=== PATIENT | male | born 1970 | race Caucasian/White ===

== ENCOUNTER 2018-09-05 23:03 | Emergency (ER) | payer OTHER ==
[~2018-09-05] VITALS: Ht 162.6 cm; Wt 65.9 kg
[2018-09-05] MEDS ORDERED: GLUCAGON FOR INJ 1 MG VIAL (J1610) IV STA (23:15)
[2018-09-05] MEDS ORDERED: GI COCKTAIL 50ML BTL(HYOSCYAMINE/MAALOX/LIDOCAINE VISCOUS)(1:3:1) PO ONE (23:30)
[2018-09-06] MEDS ORDERED: OMEPRAZOLE 20 MG CAP PO ONE (00:15)
[2018-09-06 00:20] LABS: BASO # 0.1 10^3/uL (0.0-0.2); BASO % 1.2 % (0.0-1.0); EOS # 0.3 10^3/uL (0.0-0.50); HEMATOCRIT 44.4 % (42.0-52.0); HEMOGLOBIN 15.5 g/dl (13.5-17.5); LYMPH # 2.2 10^3/uL (1.5-4.5); LYMPH % 26.3 % (24.0-44.0); MEAN CORPUSCULAR HEMOGLOBIN 30.3 pg (27.0-33.0); MEAN CORPUSCULAR HGB CONC 34.9 g/dl (32.0-36.5); MEAN CORPUSCULAR VOLUME 86.9 fl (80.0-96.0); MONO # 0.9 10^3/uL (0.0-0.8); MONO % 11.3 % (0.0-5.0); NEUTROPHILS # 4.8 10^3/uL (1.8-7.7); NEUTROPHILS % 57.1 % (36.0-66.0); PLATELET COUNT, AUTOMATED 251 10^3/uL (150-450); RED BLOOD COUNT 5.11 10^6/uL (4.30-6.10); WHITE BLOOD COUNT 8.3 10^3/uL (4.0-10.0)
[2018-09-06 00:33] LABS: ALT/SGPT 33 U/L (12-78); BILIRUBIN,DIRECT 0.2 MG/DL (0.0-0.2); BILIRUBIN,TOTAL 0.5 MG/DL (0.2-1.0); BLOOD UREA NITROGEN 10 MG/DL (7-18); CALCIUM LEVEL 9.4 MG/DL (8.5-10.1); CARBON DIOXIDE LEVEL 24 MEQ/L (21-32); CHLORIDE LEVEL 104 MEQ/L (98-107); CK-MB VALUE MASS 5.7 NG/ML (<3.6); CPK CREATINE PHOSPHOKINASE 628 U/L (39-308); CREATININE FOR GFR 0.95 MG/DL (0.70-1.30); GLOMERULAR FILTRATION RATE > 60.0 (>60); GLUCOSE, FASTING 85 MG/DL (70-100); LIPASE 197 U/L (73-393); MB/CK RELATIVE INDEX 0.91 (< OR =4); POTASSIUM SERUM 4.1 MEQ/L (3.5-5.1); SODIUM LEVEL 137 MEQ/L (136-145); TOTAL PROTEIN 7.2 GM/DL (6.4-8.2)
[2018-09-06] MEDS ORDERED: PROT1TAB2 PO (01:17)
[2018-09-06 01:27] VITALS: BP 141/97
--- NOTE | 2018-09-06 07:29 | REP ---
Clinical: Shortness of breath. Neck pain. Technique: AP and lateral (three total views) soft tissue neck radiographs. Findings: Focal advanced degenerative disc osteophyte complex at C6-7 along with moderate multilevel degenerative changes noted. The prevertebral and surrounding soft tissues are normal and without abnormal subcutaneous emphysema or foreign body. The visualized airways patent and normal. No mass or mass effect. No obvious stenosis. Impression: Cervical spondylosis. Normal appearance of the airway and surrounding soft tissues. Electronically Signed by Sha Verdin MD 09/06/2018 07:20 A
--- NOTE | 2018-09-06 07:34 | REP ---
Clinical: Shortness of breath . Comparison: 09/29/2013 . Technique: PA and lateral. Findings: The mediastinum and cardiac silhouette are normal. The lung boyce are clear and without acute consolidation, effusion, or pneumothorax. The skeletal structures are intact and normal. Impression: 1. No acute cardiopulmonary process. Electronically Signed by Sha Verdin MD 09/06/2018 07:26 A
--- NOTE | 2018-09-06 19:34 | ECGEPIP ---
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
== END 2018-09-06 01:30 | disposition home or self-care (01) ==
LOC: M ED 23:03
DX: R13.19 Other dysphagia (principal); F17.220 Nicotine dependence, chewing tobacco, uncomplicated

== ENCOUNTER 2018-12-23 14:39 | Emergency (ER) | payer OTHER ==
[~2018-12-23] VITALS: Ht 162.6 cm; Wt 64.5 kg
[~2018-12-23 14:39] MED LIST: PROT1TAB2 PO
[2018-12-23 16:03] LABS: BASO # 0.1 10^3/uL (0.0-0.2); BASO % 0.9 % (0.0-1.0); EOS # 0.3 10^3/uL (0.0-0.5); HEMATOCRIT 49.1 % (42.0-52.0); HEMOGLOBIN 16.3 g/dl (13.5-17.5); LYMPH # 1.3 10^3/uL (1.5-5.0); MEAN CORPUSCULAR HGB CONC 33.2 g/dl (32.0-36.5); MEAN CORPUSCULAR VOLUME 87.2 fl (80.0-96.0); MONO # 0.9 10^3/uL (0.0-0.8); MONO % 9.4 % (0.0-5.0); NEUTROPHILS # 6.7 10^3/uL (1.5-8.5); NEUTROPHILS % 72.2 % (36.0-66.0); PLATELET COUNT, AUTOMATED 277 10^3/uL (150-450); RED BLOOD COUNT 5.63 10^6/uL (4.30-6.10); WHITE BLOOD COUNT 9.2 10^3/uL (4.0-10.0)
[2018-12-23 16:22] LABS: ERYTHROCYTE SEDIMENTATION RATE 2 mm/hr (0-15)
--- NOTE | 2018-12-23 16:23 | REP ---
Chest x-ray: Two views. History: Chest pain. Comparison chest x-ray: September 05, 2018. Findings: The lungs are symmetrically aerated and free of infiltrate. Pleural angles are sharp. Heart size is normal. Pulmonary vasculature is not increased. No significant bony abnormality. There is old post-traumatic deformity of the right second and third ribs. Impression: No active disease. Electronically Signed by Naeem Magana MD 12/23/2018 04:14 P
[2018-12-23 16:27] LABS: INFLUENZA A AMPLIFICATION NEGATIVE (NEGATIVE); INFLUENZA B AMPLIFICATION NEGATIVE (NEGATIVE)
[2018-12-23 16:31] LABS: ALT/SGPT 41 U/L (12-78); BLOOD UREA NITROGEN 12 MG/DL (7-18); CARBON DIOXIDE LEVEL 27 MEQ/L (21-32); CHLORIDE LEVEL 103 MEQ/L (98-107); CK-MB VALUE MASS 1.8 NG/ML (<3.6); CPK CREATINE PHOSPHOKINASE 219 U/L (39-308); CREATININE FOR GFR 1.07 MG/DL (0.70-1.30); GLOMERULAR FILTRATION RATE > 60.0 (>60); GLUCOSE, FASTING 86 MG/DL (70-100); MB/CK RELATIVE INDEX 0.82 (< OR =4); POTASSIUM SERUM 4.1 MEQ/L (3.5-5.1); SODIUM LEVEL 136 MEQ/L (136-145)
[2018-12-23 16:32] LABS: ALBUMIN 4.2 GM/DL (3.2-5.2); BILIRUBIN,DIRECT 0.2 MG/DL (0.0-0.2); BILIRUBIN,TOTAL 0.6 MG/DL (0.2-1.0); C REACTIVE PROTEIN QUANTITATIV 1.15 MG/DL (0.00-0.30); LIPASE 128 U/L (73-393); NT-PRO BNP 17 PG/ML (<125); TOTAL PROTEIN 7.6 GM/DL (6.4-8.2); TROPONIN I < 0.02 NG/ML (< 0.10)
[2018-12-23] MEDS ORDERED: ACETAMINOPHEN 500 MG TAB PO ONE (18:15)
[2018-12-23] MEDS ORDERED: PROAAER10 INH (18:18)
[2018-12-23 18:55] LABS: APPEARANCE, URINE CLEAR (CLEAR); BACTERIA, URINE AUTO NEGATIVE (NEGATIVE); BILIRUBIN, URINE AUTO NEGATIVE (NEGATIVE); BLOOD, URINE BLOOD 1+ (NEGATIVE); COLOR, URINE YELLOW (YELLOW); GLUCOSE, URINE (UA) AUTO NEGATIVE (NEGATIVE); KETONE, URINE AUTO 1+ mg/dL (NEGATIVE); LEUKOCYTE ESTERASE, URINE AUTO NEGATIVE (NEGATIVE); MUCUS, URINE SMALL (NEGATIVE); NITRITE, URINE AUTO NEGATIVE (NEGATIVE); PROTEIN, URINE AUTO NEGATIVE (NEGATIVE); RBC, URINE AUTO 1 /HPF (0-3); SPECIFIC GRAVITY URINE AUTO 1.009 (1.002-1.035); SQUAMOUS EPITHELIAL CELL UR AU 0 /HPF (0-6); UROBILINOGEN, URINE AUTO 0.2 mg/dL (0.0-2.0); WBC, URINE AUTO 0 /HPF (0-3)
[2018-12-23] MEDS ORDERED: BENZ200C70 PO (18:55)
[2018-12-23] MEDS ORDERED: ALBUTEROL 90 MCG/ACT 8GM HFA INHALER INH STA (19:08)
[2018-12-23 19:15] VITALS: BP 164/103
--- NOTE | 2018-12-24 12:09 | ECGEPIP ---
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
[2018-12-25 10:06] LABS: VITAMIN B12 LEVEL 532 PG/ML (247-911)
[2018-12-25 10:07] LABS: FOLATE 11.4 NG/ML (>5.4)
== END 2018-12-23 19:40 | disposition home or self-care (01) ==
LOC: M ED 14:39
DX: J20.9 Acute bronchitis, unspecified (principal); F17.220 Nicotine dependence, chewing tobacco, uncomplicated; Z79.899 Other long term (current) drug therapy

== ENCOUNTER 2019-12-19 10:11 | Emergency (ER) | payer OTHER ==
[~2019-12-19] VITALS: Ht 162.6 cm; Wt 70.4 kg
[~2019-12-19 10:11] MED LIST changes: +BENZ200C70 PO; +PROAAER10 INH
[2019-12-19] MEDS ORDERED: OMEP-218 PO (10:20)
[2019-12-19] MEDS ORDERED: QVAR80AE8 INH (10:20)
[2019-12-19] MEDS ORDERED: AMLO1TAB24 PO (10:20)
[2019-12-19] MEDS ORDERED: KETOROLAC 30 MG/ML 1ML VIAL IV ONE (11:00)
[2019-12-19 11:13] LABS: BASO # 0.1 10^3/uL (0.0-0.2); BASO % 1.1 % (0.0-1.0); EOS # 0.2 10^3/uL (0.0-0.5); EOS % 2.5 % (0.0-3.0); HEMATOCRIT 45.5 % (42.0-52.0); HEMOGLOBIN 14.6 g/dl (13.5-17.5); LYMPH # 1.1 10^3/uL (1.5-5.0); LYMPH % 14.9 % (24.0-44.0); MEAN CORPUSCULAR HEMOGLOBIN 27.3 pg (27.0-33.0); MEAN CORPUSCULAR HGB CONC 32.1 g/dl (32.0-36.5); MONO # 0.7 10^3/uL (0.0-0.8); MONO % 9.4 % (0.0-5.0); NEUTROPHILS # 5.4 10^3/uL (1.5-8.5); NEUTROPHILS % 71.3 % (36.0-66.0); PLATELET COUNT, AUTOMATED 269 10^3/uL (150-450); RED BLOOD COUNT 5.35 10^6/uL (4.30-6.10); WHITE BLOOD COUNT 7.6 10^3/uL (4.0-10.0)
[2019-12-19 11:39] LABS: ALBUMIN 4.2 GM/DL (3.2-5.2); ALT/SGPT 35 U/L (12-78); BILIRUBIN,DIRECT 0.2 MG/DL (0.0-0.2); BILIRUBIN,TOTAL 0.5 MG/DL (0.2-1.0); BLOOD UREA NITROGEN 10 MG/DL (7-18); CALCIUM LEVEL 9.5 MG/DL (8.5-10.1); CARBON DIOXIDE LEVEL 28 MEQ/L (21-32); CHLORIDE LEVEL 107 MEQ/L (98-107); CREATININE FOR GFR 0.88 MG/DL (0.70-1.30); GLOMERULAR FILTRATION RATE > 60.0 (>60); GLUCOSE, FASTING 86 MG/DL (70-100); LIPASE 92 U/L (73-393); POTASSIUM SERUM 4.4 MEQ/L (3.5-5.1); SODIUM LEVEL 140 MEQ/L (136-145)
[2019-12-19] MEDS ORDERED: ISOVUE-370 76% 100ML VIAL As Ordered ONE (11:43)
--- NOTE | 2019-12-19 12:44 | REP ---
INDICATION: left abd pain/left ing hernia. COMPARISON: None. TECHNIQUE: Bolus of 100 mL Isovue 370 scanning through the abdomen and pelvis with both coronal and sagittal reconstructions. FINDINGS: CT abdomen: Lung bases are clear. Heart is not enlarged. There is no pericardial thickening or effusion. No hiatal hernia. Liver, spleen, gallbladder, pancreas, adrenal glands and kidneys were all unremarkable. The aorta is without aneurysm. No periaortic, mesenteric or retroperitoneal lymphadenopathy. The small bowel loops in the abdomen or unremarkable. The colon shows a few scattered diverticula without signs of diverticulitis or colitis. Appendix is normal. Bones show some minor degenerative changes in the spine. No compression fractures. Ribs grossly intact. CT pelvis: Sacrum, pelvis and hips show mild degenerative change without destructive lesion or fracture. Kidneys, ureters and bladder without stone. Bladder partially filled without mass or wall thickening. Distal left colon sigmoid and rectum as well as small bowel loops in the pelvis were unremarkable. No ventral hernia. There is a distended left inguinal canal with only omental fat within it. The distended canal has maximum transverse diameter of 6.7 by AP 4.3 cm and filled without fat. The right inguinal canal shows only a small amount of fat without adenopathy or mass. IMPRESSION: 1. Left inguinal canal with herniation of large volume of omental fat but no bowel herniation or or some other mass within the canal. No other significant finding. <Electronically signed by David Baxter > 12/19/19 [id number]
[2019-12-19 13:01] VITALS: BP 131/84
== END 2019-12-19 13:08 | disposition home or self-care (01) ==
LOC: M ED 10:11
DX: K40.90 Unilateral inguinal hernia, without obstruction or gangrene, not specified as recurrent (principal); K21.9 Gastro-esophageal reflux disease without esophagitis; I10 Essential (primary) hypertension; J45.909 Unspecified asthma, uncomplicated; Z79.899 Other long term (current) drug therapy; Z79.51 Long term (current) use of inhaled steroids
CPT/HCPCS: 36415; 74177; 80048; 80076; 83690; 85025; 96374; 99284; J1885; Q9967

== ENCOUNTER → 2020-02-28 | Outpatient (CLI) | payer OTHER ==
[~2020-02-28] MED LIST changes: +AMLO1TAB24 PO; +HYDR-3715 PO; +OMEP-218 PO; +QVAR80AE8 INH
== END ==
LOC: M LABSMTC 09:42
PROVIDERS: ATTEND Anesthesiology
DX: Z01.812 Encounter for preprocedural laboratory examination (principal); Z20.822 Contact with and (suspected) exposure to COVID-19

== ENCOUNTER 2020-03-04 07:41 | Day surgery (SDC) | payer OTHER ==
[~2020-03-04] VITALS: Ht 162.6 cm; Wt 69.8 kg
[~2020-03-04 07:41] MED LIST changes: +BUPIVACAINE HCL 0.25% 30ML VIAL As Ordered ONE; -HYDR-3715 PO; +LR 1,000 ML IV ONE
[2020-03-04] MEDS ORDERED: propofoL 200 MG/20 ML VIAL As Ordered ONE (08:59)
[2020-03-04] MEDS ORDERED: fentaNYL 100 MCG/2 ML INJECTION (J3010) As Ordered ONE ×2 (08:59→13:15)
[2020-03-04] MEDS ORDERED: ROCURONIUM BROMIDE 50 MG/5 ML VIAL As Ordered ONE (08:59)
[2020-03-04] MEDS ORDERED: MIDAZOLAM INJ 2MG/2ML VIAL (J2250 PER 1MG) As Ordered ONE (08:59)
[2020-03-04] MEDS ORDERED: LIDOCAINE 2% 100MG/5ML SDV (FOR ANES.) As Ordered ONE (08:59)
[2020-03-04] MEDS ORDERED: dexameTHASONE 4 MG/ML 1ML VIAL (J1100 PER 1MG) As Ordered ONE (12:49)
[2020-03-04] MEDS ORDERED: LACRILUBE (AKWA TEARS) OPHTH OINT 3.5 GM As Ordered ONE (12:49)
[2020-03-04] MEDS ORDERED: KETOROLAC 60MG 2ML VIAL As Ordered ONE (12:49)
[2020-03-04] MEDS ORDERED: ONDANSETRON 4MG/2ML VIAL As Ordered ONE (12:49)
[2020-03-04] MEDS ORDERED: oxyCODONE 5MG TAB As Ordered ONE (13:15)
[2020-03-04] MEDS: fentaNYL 100 MCG/2 ML INJECTION (J3010) IV PRN ×4 (13:17→13:38)
[2020-03-04] MEDS: oxyCODONE 5MG TAB PO PRN ×2 (13:17→14:02)
[2020-03-04] MEDS ORDERED: NORCO, ANEXSIA 5/325MG TABLET (HYDROcodone/ACETAMINOPHEN) PO PRN (13:30)
[2020-03-04] MEDS ORDERED: IBUPROFEN 600MG TAB PO PRN (13:30)
[2020-03-04] MEDS ORDERED: LR 1,000 ML IV SCH (13:30)
[2020-03-04] MEDS ORDERED: ONDANSETRON 4MG/2ML VIAL IV PRN (13:30)
[2020-03-04] MEDS ORDERED: ACETAMINOPHEN TAB 650MG DOSE (2X325MG) PO PRN (13:30)
[2020-03-04] MEDS ORDERED: HYDR-3715 PO (13:39)
[2020-03-04] MEDS: HYDROMORPHONE HCL 0.5 MG/ 0.5 ML SYRINGE (J1170 PER 1) IV PRN ×3 (13:44→14:05)
[2020-03-04] MEDS ORDERED: SUGAMMADEX SODIUM 500 MG/5 ML VIAL (BRIDION) As Ordered ONE (14:40)
[2020-03-04 14:50] VITALS: BP 143/87
--- NOTE | 2020-03-05 07:07 | RO ---
OPERATIVE NOTE DATE OF OPERATION: 03/04/2020 PREOPERATIVE DIAGNOSIS: Left inguinal hernia. POSTOPERATIVE DIAGNOSIS: Large indirect left inguinal hernia. PROCEDURE: Robotic-assisted laparoscopic repair of left inguinal hernia with Covidien ProGrip mesh. The utilized was reference code [id number], lot #[id number]. SURGEON: Austin Ibrahim MD OXYGEN THERAPY TECHNICIAN: REBEL Hinojosa. Ruba's assistance was necessary for management of the robotic instruments, changing of instruments, passage of sutures and the mesh and also closure of the incisions. ANESTHESIA: General INDICATIONS FOR THE PROCEDURE: The patient is a 49-year-old man who has noticed a left inguinal hernia for perhaps two years. It has gotten gradually larger and more uncomfortable. He is now for repair. DESCRIPTION OF PROCEDURE: The patient was brought to the operating room and placed on the table in a supine position. He was placed under general endotracheal anesthesia. The patient's abdomen, groins and genitalia were prepped and draped in a sterile fashion. 1/4% Marcaine was infiltrated at each of the trocar sites. A short transverse supraumbilical incision was made and a Veress needle was inserted. After a positive hanging drop test, the abdomen was inflated with carbon dioxide gas. An 8 mm robotic port was placed through the abdominal wall without difficulty. Initial inspection showed no evidence of trocar injury. A second 8 mm port was placed in the right upper quadrant and a third in the left upper quadrant. The patient was tilted to approximately 15 degrees of Trendelenburg position. The da Mariel XI patient cart was brought into position and the endoscope port was docked to the supraumbilical site. The additional arms were docked and a cauterizing scissor and fenestrated bipolar were inserted. I moved to the control console to proceed with the operation. The initial inspection showed no evidence of a hernia on the right-hand side. On the left-hand side, he clearly had a large hernia. There was a large amount of omentum within the opening of the hernia and this was gently reduced into the abdomen. Inspection revealed that the hernia was a large direct hernia. A preperitoneal space was developed by incising the peritoneum starting at the medial umbilical ligament and extending this laterally and then inferiorly toward the anterior-superior iliac spine. The peritoneum was incised and the space was developed by a combination of cautery and sharp dissection through the areolar tissues. The medial portion of the dissection was completed first, extending the dissection down to expose the area of the pubic symphysis and Gino's ligament. The lateral portion of the dissection was then performed and once this had been opened up, this left only the hernia sac protruding to be addressed. With traction on the hernia sac, this was dissected free from surrounding soft tissues and the adjacent cord structures. It was possible to completely invert the hernia sac intact. This was then peeled off of the underlying structures to create an adequate space for placement of the mesh. The hernia defect appeared to be at least 3 cm in diameter and I elected to close this. A 2-0 V-Loc suture was inserted and beginning at the medial extent of the defect, the inguinal floor was closed using superficial bites along the edge of the tissues, working laterally as far as the cord structures. The suture was then carried back toward the medial end of the closure to fix the suture. The needle was removed. The piece of ProGrip as identified previously was then inserted into the abdomen. The corners had been trimmed very slightly. This was placed into the preperitoneal space and then centered over the sutured fascial defect and opened. The adherent side of the mesh was gently pressed into the overlying inguinal floor tissues. Medially the mesh extended to the area of the symphysis pubis and extended inferiorly below the Gino's ligament. This appeared to nicely cover the area of the inguinal floor. The peritoneal flap was then closed with a running suture of 2-0 V-Loc. This was begun laterally. The pressure within the abdomen was reduced to 10 and subsequently 8 mmHg as the closure progressed. The patient was also gradually flattened so that as the final portion of the flap was closed, the patient was in a flat position. The final needle was removed. The robotic instruments were removed and the patient cart was undocked and withdrawn. REBEL Hinojosa then proceeded to deflate the abdomen and remove the robotic trocars and close the skin incisions with buried sutures of 4-0 Vicryl and Steri-Strips. Light dressings were applied. The patient tolerated the procedure well. He was awakened in the operating room extubated and moved to the recovery room in stable condition. [place]
== END 2020-03-04 15:20 | disposition home or self-care (01) ==
LOC: M SDC 07:41
PROVIDERS: ATTEND Surgery
DX: K40.90 Unilateral inguinal hernia, without obstruction or gangrene, not specified as recurrent (principal); I10 Essential (primary) hypertension; J45.909 Unspecified asthma, uncomplicated; Z79.899 Other long term (current) drug therapy
CPT/HCPCS: 49650; C1781; J1100; J1170; J1885; J2250; J2405; J3010; S2900

== ENCOUNTER 2021-06-06 20:47 | Inpatient (IN) | payer OTHER, SELFPAY ==
[~2021-06-06 20:47] MED LIST changes: -BUPIVACAINE HCL 0.25% 30ML VIAL As Ordered ONE; +HYDR-3715 PO; -LR 1,000 ML IV ONE; +OMEP-173 PO; -OMEP-218 PO
[2021-06-06] MEDS ORDERED: MORPHINE 4 MG/ML 1ML VIAL/SYRINGE IV ONE ×2 (21:05→22:10)
[2021-06-06] MEDS ORDERED: ISOVUE-370 76% 100ML VIAL As Ordered ONE (21:07)
[2021-06-06 21:19] LABS: BASO # 0.1 10^3/uL (0.0-0.2); BASO % 0.6 % (0.0-1.0); EOS # 0.1 10^3/uL (0.0-0.5); EOS % 0.4 % (0.0-3.0); HEMATOCRIT 49.7 % (42.0-52.0); HEMOGLOBIN 16.8 g/dl (13.5-17.5); LYMPH # 1.3 10^3/uL (1.5-5.0); LYMPH % 6.1 % (24.0-44.0); MEAN CORPUSCULAR HEMOGLOBIN 28.8 pg (27.0-33.0); MEAN CORPUSCULAR HGB CONC 33.8 g/dl (32.0-36.5); MEAN CORPUSCULAR VOLUME 85.1 fl (80.0-96.0); MONO # 1.3 10^3/uL (0.0-0.8); MONO % 6.2 % (2.0-8.0); NEUTROPHILS # 17.7 10^3/uL (1.5-8.5); NEUTROPHILS % 85.6 % (36.0-66.0); PLATELET COUNT, AUTOMATED 347 10^3/uL (150-450); RED BLOOD COUNT 5.84 10^6/uL (4.30-6.10); WHITE BLOOD COUNT 20.7 10^3/uL (4.0-10.0)
[2021-06-06 21:27] LABS: INR 0.81; PROTHROMBIN TIME 11.6 SECONDS (12.7-14.5)
[2021-06-06 21:28] LABS: PARTIAL THROMBOPLASTIN TIME 25.2 SECONDS (25.9-37.0)
[2021-06-06 21:45] LABS: CK-MB VALUE MASS 7.2 NG/ML (<3.6); MB/CK RELATIVE INDEX 1.28 (< OR =4)
[2021-06-06 21:45] LABS: ALBUMIN 4.5 GM/DL (3.2-5.2); BILIRUBIN,DIRECT 0.1 MG/DL (0.0-0.2); BILIRUBIN,TOTAL 0.3 MG/DL (0.2-1.0); ETHYL ALCOHOL (ETHANOL) 0.215 % (0.000-0.010); TOTAL PROTEIN 8.1 GM/DL (6.4-8.2)
[2021-06-06] MEDS ORDERED: fentaNYL 100 MCG/2 ML INJECTION IV ONE ×2 (22:25→23:25)
[2021-06-06] MEDS ORDERED: MIDAZOLAM INJ 2MG/2ML VIAL (J2250 PER 1MG) IV STA ×2 (22:38→23:25)
[2021-06-06] MEDS ORDERED: MIDAZOLAM INJ 2MG/2ML VIAL (J2250 PER 1MG) As Ordered ONE (22:39)
[2021-06-06] MEDS ORDERED: LIDOCAINE W/EPINEPHRINE 1% 20ML VIAL SC ONE (22:40)
[2021-06-06] MEDS ORDERED: ALBU8.5H PO (23:28)
[2021-06-06] MEDS ORDERED: HOME MED LIST COMPLETE! XX SCH (23:30)
[2021-06-06] MEDS ORDERED: ALBUTEROL 90 MCG/ACT 8GM HFA INHALER INH PRN (23:45)
[2021-06-06] MEDS: LR 1,000 ML IV SCH (23:45)
[2021-06-06] MEDS ORDERED: ONDANSETRON 4MG/2ML VIAL IV PRN (23:45)
[2021-06-07] VITALS (13 sets, daily range): BP systolic 124–158; BP diastolic 69–97
[2021-06-07] MEDS ORDERED: ceFAZolin SOD 1 GM in D5W MINI-BAG PLUS 50 ML IV SCH ×2
[2021-06-07] MEDS: KETOROLAC 30 MG/ML 1ML VIAL IV SCH ×4 (01:05→17:37)
[2021-06-07 02:49] LABS: RSV AMPLIFICATION NEGATIVE (NEGATIVE)
[2021-06-07 03:09] LABS: APPEARANCE, URINE CLEAR (CLEAR); BACTERIA, URINE AUTO NEGATIVE (NEGATIVE); BILIRUBIN, URINE AUTO NEGATIVE (NEGATIVE); BLOOD, URINE BLOOD 2+ (NEGATIVE); COLOR, URINE YELLOW (YELLOW); GLUCOSE, URINE (UA) AUTO NEGATIVE (NEGATIVE); KETONE, URINE AUTO NEGATIVE (NEGATIVE); LEUKOCYTE ESTERASE, URINE AUTO NEGATIVE (NEGATIVE); MUCUS, URINE SMALL (NEGATIVE); NITRITE, URINE AUTO NEGATIVE (NEGATIVE); PROTEIN, URINE AUTO 2+ mg/dL (NEGATIVE); RBC, URINE AUTO 0 /HPF (0-3); SPECIFIC GRAVITY URINE AUTO 1.024 (1.002-1.035); SQUAMOUS EPITHELIAL CELL UR AU 0 /HPF (0-6); UROBILINOGEN, URINE AUTO 0.2 mg/dL (0.0-2.0); WBC, URINE AUTO 2 /HPF (0-3)
[2021-06-07 03:43] LABS: AMPHETAMINES LEVEL URINE NEGATIVE (NEGATIVE); BARBITURATES URINE NEGATIVE (NEGATIVE); BENZODIAZEPINES URINE POSITIVE (NEGATIVE); CANNABINOIDS URINE NEGATIVE (NEGATIVE); COCAINE METABOLITE URINE NEGATIVE (NEGATIVE); METHADONE URINE NEGATIVE (NEGATIVE); OPIATES URINE POSITIVE (NEGATIVE); PHENCYCLIDINE URINE NEGATIVE (NEGATIVE)
[2021-06-07] MEDS: PERCOCET 5MG/325MG TAB PO PRN ×3 (04:23→16:11)
[2021-06-07 06:06] LABS: BASO % 0.2 % (0.0-1.0); EOS % 0.1 % (0.0-3.0); HEMATOCRIT 41.9 % (42.0-52.0); LYMPH # 0.9 10^3/uL (1.5-5.0); LYMPH % 6.6 % (24.0-44.0); MEAN CORPUSCULAR HEMOGLOBIN 28.7 pg (27.0-33.0); MEAN CORPUSCULAR HGB CONC 33.4 g/dl (32.0-36.5); MONO # 1.3 10^3/uL (0.0-0.8); NEUTROPHILS # 11.6 10^3/uL (1.5-8.5); NEUTROPHILS % 83.6 % (36.0-66.0); RED BLOOD COUNT 4.87 10^6/uL (4.30-6.10); WHITE BLOOD COUNT 13.9 10^3/uL (4.0-10.0)
[2021-06-07 06:07] LABS: PLATELET COUNT, AUTOMATED 242 10^3/uL (150-450)
[2021-06-07 06:37] LABS: BLOOD UREA NITROGEN 13 MG/DL (7-18); CALCIUM LEVEL 8.9 MG/DL (8.5-10.1); CARBON DIOXIDE LEVEL 27 MEQ/L (21-32); CHLORIDE LEVEL 102 MEQ/L (98-107); CREATININE FOR GFR 0.88 MG/DL (0.70-1.30); GLOMERULAR FILTRATION RATE > 60.0 (>60); GLUCOSE, FASTING 112 MG/DL (70-100); POTASSIUM SERUM 4.5 MEQ/L (3.5-5.1); SODIUM LEVEL 135 MEQ/L (136-145)
[2021-06-07] MEDS: LR 1,000 ML IV SCH ×2 (08:27→15:36)
[2021-06-07] MEDS: SENOKOT S TAB PO SCH ×2 (09:00→20:42)
[2021-06-07] MEDS: ENOXAPARIN 40MG/0.4ML SYRINGE (J1650 PER 10MG) SC SCH (09:59)
[2021-06-07] MEDS: amLODIPine 5 MG TAB PO SCH (09:59)
[2021-06-07] MEDS: ceFAZolin SOD 1 GM in D5W MINI-BAG PLUS 50 ML IV SCH ×4 (10:23→15:37)
[2021-06-07] MEDS ORDERED: LIDOCAINE 2% 100MG/5ML SDV (FOR ANES.) As Ordered ONE (12:52)
[2021-06-07] MEDS ORDERED: propofoL 200 MG/20 ML VIAL As Ordered ONE (12:52)
[2021-06-07] MEDS ORDERED: MIDAZOLAM INJ 2MG/2ML VIAL (J2250 PER 1MG) As Ordered ONE (12:53)
[2021-06-07] MEDS ORDERED: fentaNYL 100 MCG/2 ML INJECTION As Ordered ONE (12:53)
[2021-06-07] MEDS ORDERED: ONDANSETRON 4MG/2ML VIAL As Ordered ONE (12:53)
[2021-06-07] MEDS ORDERED: dexameTHASONE 4 MG/ML 1ML VIAL (J1100 PER 1MG) As Ordered ONE (12:53)
[2021-06-07] MEDS: MORPHINE 4 MG/ML 1ML VIAL/SYRINGE IV PRN ×2 (13:04→20:45)
[2021-06-07] MEDS ORDERED: BUPIVACAINE LIPOSOME/PF 1.3% 20ML VIAL (13.3MG/ML)(EXPAREL) As Ordered ONE (13:26)
[2021-06-07] MEDS ORDERED: BUPIVACAINE HCL 0.25% 30ML VIAL As Ordered ONE (13:26)
[2021-06-07] MEDS ORDERED: ONDANSETRON 4MG/2ML VIAL IV PRN (15:00)
[2021-06-07] MEDS ORDERED: fentaNYL 100 MCG/2 ML INJECTION IV PRN (15:00)
[2021-06-07] MEDS ORDERED: LR 1,000 ML IV SCH (15:00)
[2021-06-08] VITALS: BP 129/73
[2021-06-08] MEDS: KETOROLAC 30 MG/ML 1ML VIAL IV SCH ×5 (01:23→23:39)
[2021-06-08] MEDS: LR 1,000 ML IV SCH ×4 (02:33→23:45)
[2021-06-08 04:00] VITALS: BP 121/71
[2021-06-08 08:00] VITALS: BP 130/81
[2021-06-08] MEDS: amLODIPine 5 MG TAB PO SCH (08:45)
[2021-06-08] MEDS: ENOXAPARIN 40MG/0.4ML SYRINGE (J1650 PER 10MG) SC SCH (08:45)
[2021-06-08] MEDS: SENOKOT S TAB PO SCH ×2 (08:45→20:23)
[2021-06-08 12:00] VITALS: BP 147/93
[2021-06-08] MEDS: PERCOCET 5MG/325MG TAB PO PRN ×2 (13:52→20:24)
[2021-06-08 16:00] VITALS: BP 120/75
[2021-06-08 20:00] VITALS: BP 133/79
[2021-06-09] VITALS: BP 139/81
[2021-06-09 04:00] VITALS: BP 143/82
[2021-06-09] MEDS: PERCOCET 5MG/325MG TAB PO PRN ×3 (04:11→20:16)
[2021-06-09] MEDS: KETOROLAC 30 MG/ML 1ML VIAL IV SCH ×3 (05:08→18:03)
[2021-06-09] MEDS: LR 1,000 ML IV SCH ×3 (07:45→23:45)
[2021-06-09 08:00] VITALS: BP 139/84
[2021-06-09] MEDS: SENOKOT S TAB PO SCH ×2 (09:56→20:03)
[2021-06-09] MEDS: ENOXAPARIN 40MG/0.4ML SYRINGE (J1650 PER 10MG) SC SCH (09:56)
[2021-06-09] MEDS: amLODIPine 5 MG TAB PO SCH (09:56)
[2021-06-09 16:48] VITALS: BP 120/75
[2021-06-09 20:00] VITALS: BP 135/82
[2021-06-10] MEDS: KETOROLAC 30 MG/ML 1ML VIAL IV SCH ×5 (00:03→23:49)
[2021-06-10] MEDS: MORPHINE 4 MG/ML 1ML VIAL/SYRINGE IV PRN (00:04)
[2021-06-10 04:00] VITALS: BP 130/73
[2021-06-10] MEDS: PERCOCET 5MG/325MG TAB PO PRN ×3 (05:49→20:56)
[2021-06-10] MEDS: LR 1,000 ML IV SCH (07:45)
[2021-06-10 08:00] VITALS: BP 133/83
[2021-06-10] MEDS: SENOKOT S TAB PO SCH ×2 (08:03→20:55)
[2021-06-10] MEDS: amLODIPine 5 MG TAB PO SCH (08:03)
[2021-06-10] MEDS: ENOXAPARIN 40MG/0.4ML SYRINGE (J1650 PER 10MG) SC SCH (08:04)
[2021-06-10 12:00] VITALS: BP 122/85
[2021-06-10 16:00] VITALS: BP 126/81
[2021-06-10 20:00] VITALS: BP 125/79
[2021-06-11] VITALS: BP 138/85
[2021-06-11] MEDS: PERCOCET 5MG/325MG TAB PO PRN ×2 (02:00→08:08)
[2021-06-11 04:00] VITALS: BP 117/70
[2021-06-11] MEDS: KETOROLAC 30 MG/ML 1ML VIAL IV SCH ×2 (05:09→11:09)
[2021-06-11 08:00] VITALS: BP 113/80
[2021-06-11] MEDS: SENOKOT S TAB PO SCH (08:07)
[2021-06-11] MEDS: ENOXAPARIN 40MG/0.4ML SYRINGE (J1650 PER 10MG) SC SCH (08:07)
[2021-06-11 08:08] VITALS: BP 114/70
[2021-06-11] MEDS: amLODIPine 5 MG TAB PO SCH (08:08)
[2021-06-11 12:00] VITALS: BP 152/86
[2021-06-11] MEDS ORDERED: PERCOCET PO (13:39)
== END 2021-06-11 15:50 | disposition home or self-care (01) | DRG 135 ==
LOC: M ED 20:47 → M ED INP 23:42 → M ICU 06-07 05:22 → M PCU 06-07 11:56
PROVIDERS: ADMIT Surgery; ATTEND Surgery
PROC: 0W9930Z Drainage of Right Pleural Cavity with Drainage Device, Percutaneous Approach (ICD-10-PCS; principal; 2021-06-06)
PROC: 0WP930Z Removal of Drainage Device from Right Pleural Cavity, Percutaneous Approach (ICD-10-PCS; 2021-06-07)
PROC: 0W9900Z Drainage of Right Pleural Cavity with Drainage Device, Open Approach (ICD-10-PCS; 2021-06-07)
DX: S27.0XXA Traumatic pneumothorax, initial encounter (principal); S22.41XA Multiple fractures of ribs, right side, initial encounter for closed fracture; V86.55XA Driver of 3- or 4- wheeled all-terrain vehicle (ATV) injured in nontraffic accident, initial encounter; Y93.89 Activity, other specified; Y92.89 Other specified places as the place of occurrence of the external cause; Y99.8 Other external cause status; I10 Essential (primary) hypertension; J44.9 Chronic obstructive pulmonary disease, unspecified; J45.909 Unspecified asthma, uncomplicated; F17.200 Nicotine dependence, unspecified, uncomplicated; Z79.899 Other long term (current) drug therapy; Y83.1 Surgical operation with implant of artificial internal device as the cause of abnormal reaction of the patient, or of later complication, without mention of misadventure at the time of the procedure; T82.898A Other specified complication of vascular prosthetic devices, implants and grafts, initial encounter

== ENCOUNTER 2021-06-14 13:23 | Emergency (ER) | payer OTHER ==
[~2021-06-14] VITALS: Ht 162.6 cm; Wt 70.0 kg
[~2021-06-14 13:23] MED LIST changes: +ALBU8.5H PO; +PERCOCET PO
[2021-06-14] MEDS ORDERED: LORA-674 PO (13:35)
[2021-06-14] MEDS ORDERED: ACET-683 PO (13:35)
[2021-06-14] MEDS ORDERED: NAPR-837 PO (14:58)
[2021-06-14] MEDS ORDERED: NAPROXEN 250 MG TAB PO ONE (15:00)
[2021-06-14 15:09] VITALS: BP 157/92
== END 2021-06-14 15:20 | disposition home or self-care (01) ==
LOC: M ED 13:23
DX: I82.612 Acute embolism and thrombosis of superficial veins of left upper extremity (principal); I10 Essential (primary) hypertension; J44.9 Chronic obstructive pulmonary disease, unspecified; K21.9 Gastro-esophageal reflux disease without esophagitis; Z79.899 Other long term (current) drug therapy

== ENCOUNTER → 2023-02-03 | Outpatient (REF) | payer OTHER ==
[~2023-02-03] MED LIST changes: +ACET-683 PO; +LORA-1041 PO; +NAPR-837 PO
== END ==
LOC: M SFHCPLAZ 16:44
PROVIDERS: ATTEND Family Medicine
DX: Z53.9 Procedure and treatment not carried out, unspecified reason (principal); R68.89 Other general symptoms and signs

== ENCOUNTER → 2023-11-01 | Outpatient (REF) | payer OTHER | LOC: M SFHCPLAZ 16:30 | PROVIDERS: ATTEND Family Medicine | DX: Z00.00 Encounter for general adult medical examination without abnormal findings (principal); Z13.220 Encounter for screening for lipoid disorders; Z13.1 Encounter for screening for diabetes mellitus; E55.9 Vitamin D deficiency, unspecified; Z13.29 Encounter for screening for other suspected endocrine disorder; I10 Essential (primary) hypertension ==